=== PATIENT | female | born 2000 | race Caucasian/White ===

== ENCOUNTER 2020-04-26 13:20 | Emergency (ER) | payer OTHER, SELFPAY ==
[2020-04-26 13:29] VITALS: BP 130/67; PULSE 69; RESP 20; TEMP 36.8; O2SAT 100
--- NOTE | 2020-04-26 14:05 | ED.GENADULT ---
HPI - General Adult General Chief complaint: Upper Respiratory Infection Stated complaint: sore throat Time Seen by Provider: 04/26/20 14:05 Source: patient Mode of arrival: ambulatory Limitations: no limitations History of Present Illness HPI narrative: 20-year-old female patient presents to the [facility] with complaints of a sore throat for the past 3 days. Patient states she is concerned that she has strep due to the fact that her boss currently has strep. Patient states that the sore throat got increasingly worse last night. Patient denies any fevers, ear pain, body aches or chills. Denies any runny nose, stuffy nose. Denies any coughing, chest pain or shortness of breath. Denies any abdominal pain, nausea, vomiting or diarrhea. Patient states she has not taken anything for her symptoms since they started. Related Data Home Medications Medication Instructions Recorded Confirmed methimazole 04/26/20 Allergies Allergy/AdvReac Type Severity Reaction Status Date / Time No Known Allergies Allergy Unknown Verified 12/23/19 10:02 No Known Allergies Allergy Uncoded 12/23/19 10:02 Review of Systems Review of Systems: Narrative: CONSTITUTIONAL: Denies fever, chills, or sweats. EYES: Denies visual changes, redness, or discharge. ENT: Denies rhinorrhea, congestion, positive sore throat x3 days, denies otalgia. CARDIOVASCULAR: Denies chest pain, palpitations, or edema. RESPIRATORY: Denies cough or dyspnea. GASTROINTESTINAL: Denies abdominal pain, nausea, vomiting, or diarrhea. GENITOURINARY: Denies dysuria or hematuria. SKIN: Denies rash or itching. MUSCULOSKELETAL: Denies back pain, joint pain, or myalgia. NEUROLOGIC: Denies headache, numbness, or weakness. PSYCHIATRIC: Denies anxiety or depression. [facility] Past Medical History Medical History (Updated 04/26/20 @ 14:11 by LIZZIE Lagunas) Bipolar disorder Fractures Right arm x3, right hand, skull Genitourinary disorder Double ureter complex kidney GERD (gastroesophageal reflux disease) Urinary tract infection Comments At the time of my signature I agree with nursing past medical history, surgical, social, and family history. There is no relevant family history pertinent to the presenting complaint. Exam Narrative: Exam Narrative: GENERAL: Well-appearing, well-nourished, and in no acute distress. HEAD: Normocephalic, atraumatic. EYES: PERRLA and EOMI. ENT: Nares clear, no rhinorrhea or epistaxis. Mucous membranes moist. Posterior pharynx with some postnasal drip noted but no erythema, tonsil larger exudates or lesions are present. Bilateral TMs are clear no erythema or foreign bodies in the canal. NECK: Supple. No lymphadenopathy CHEST: Clear to auscultation. No respiratory distress. HEART: Regular rate and rhythm. No murmur heard. Normal peripheral pulses. ABDOMEN: Soft, nontender, nondistended, normal active bowel sounds. EXTREMITIES: Normal range of motion. No edema. SKIN: Warm, dry, no rash. NEURO: No focal deficits. Alert and oriented x3. Course Vital Signs Vital signs: Vital Signs Temperature 36.8 C 04/26/20 13:29 Pulse Rate 69 04/26/20 13:29 Respiratory Rate 20 04/26/20 13:29 Blood Pressure 130/67 04/26/20 13:29 Pulse Oximetry 100 04/26/20 13:29 Temperature 36.8 C 04/26/20 13:29 Pulse Rate 69 04/26/20 13:29 Respiratory Rate 20 04/26/20 13:29 Blood Pressure 130/67 04/26/20 13:29 Pulse Oximetry 100 04/26/20 13:29 Vital signs reviewed. Medical Decision Making Differential Diagnosis Differential Diagnosis: Differential diagnosis: Viral pharyngitis, pharyngitis, group A strep, infectious mononucleosis, gonococcal pharyngitis, exudative pharyngitis, oral candidiasis. Chronic allergies, postnasal drip, GERD, abscess formation, but glottitis, retropharyngeal abscess formation, or airway obstruction. Discussed with patient that her bedside strep test today is negative. Discussed with her that we will
== END 2020-04-26 14:19 | disposition home or self-care (01) ==
PROVIDERS: Emergency Provider Nurse Practitioner Family; PCP Emergency Medicine
DX: J02.8 Acute pharyngitis due to other specified organisms (principal); K21.9 Gastro-esophageal reflux disease without esophagitis
CPT/HCPCS: 87081; 87880; 99213; G0463

== ENCOUNTER → 2020-07-16 14:20 | Outpatient (CLI) | payer OTHER, SELFPAY ==
--- NOTE | ~2020-07-16 | US_ITS ---
EXAMINATION: US transvaginal DATE: 07/16/2020 14:43 INDICATION: Pelvic pain. TECHNIQUE: Multiple transvaginal sonographic images of the pelvis were obtained. COMPARISON: None. FINDINGS: The uterus measures 6.9 x 2.5 x 4.0 cm. There is trace free fluid in the pelvis. The endometrial comp radha measures 2 mm in thickness. The right ovary measures 3.4 x 1.9 x 2.1 cm. The left ovary measures 4.1 x 2.8 x 2.7 cm. There is normal vascular flow in the ovaries. IMPRESSION: 1. Normal pelvis. Reviewed, dictated and finalized at location B. E MANAGER IMPRESSION: 1. Normal pelvis.
== END ==
PROVIDERS: Visit Provider Nurse Practitioner
DX: R10.2 Pelvic and perineal pain (principal)
CPT/HCPCS: 76830

== ENCOUNTER → 2020-09-09 13:24 | Outpatient (CLI) | payer OTHER, SELFPAY ==
--- NOTE | ~2020-09-09 | US_ITS ---
EXAMINATION: US thyroid DATE: 09/09/2020 14:15 INDICATION: Goiter. Graves' disease. TECHNIQUE: Multiple ultrasound images of the thyroid were obtained. COMPARISON: None. FINDINGS: The right thyroid lobe measures 5.0 x 1.5 x 1.3 cm. The left thyroid lobe measures 4.0 x 0.9 x 1.2 c m. There is normal echotexture and echogenicity throughout the thyroid gland. No discrete nodules id entified. Normal vascular flow is present. IMPRESSION: 1. Normal thyroid. Reviewed, dictated and finalized at location A. IMPRESSION: 1. Normal thyroid.
== END ==
PROVIDERS: PCP Emergency Medicine; Visit Provider Emergency Medicine
DX: E04.9 Nontoxic goiter, unspecified (principal)
CPT/HCPCS: 76536

== ENCOUNTER 2022-07-20 12:40 | Outpatient (CLI) | payer OTHER, SELFPAY ==
--- NOTE | ~2022-07-20 | MR_ITS ---
EXAMINATION: MR lumbar spine wo con DATE: 07/20/2022 13:09 INDICATION: Back pain TECHNIQUE: Magnetic resonance imaging (MRI) of the lumbar spine was performed without intravenous con trast. Sequences included sagittal T2-weighted FSE, sagittal T2-weighted FS FSE, sagittal T1-weighted FSE, and axial T2-weighted FSE. COMPARISON: None FINDINGS: 7 degrees lumbar levocurvature. Sagittal alignment is normal. Disc height loss at T12-L1. There is an annular fissure with left paracentral disc extrusion which appears to extend partially through a sma ll left posterior Schmorl's node with disc material projecting up to 4 mm caudal to the level of the superior endplate margin on either side of the region of the Schmorl's node. There are additional sma ll Schmorl's nodes along the inferior endplate of L1 and superior endplate of T12. Mild likely physio logic anterior wedging of T12. Small focus of mild fibrofatty degenerative endplate change at the ant erior superior endplate of L5. Bone marrow signal is otherwise normal. Remaining disc heights are nor mal. The conus medullaris terminates at L2. There is normal signal in the caudal spinal cord. Paraver tebral soft tissues are unremarkable. The following disc levels are specifically discussed: T12-L1: Left paracentral disc extrusion. There is mild bilateral facet joint osteoarthritis. There is no neural foraminal stenosis. There is mild central canal stenosis. L1-L2: Risk is minimally bulging. There is mild bilateral facet joint osteoarthritis. There is minima l bilateral neural foraminal stenosis. There is no central canal stenosis. L2-L3: Disc is minimally bulging. There is moderate bilateral facet joint osteoarthritis. There is mi ld right and minimal left neural foraminal stenosis. There is no central canal stenosis. L3-L4: Disc is mildly bulging. There is mild to moderate bilateral facet joint osteoarthritis. There is minimal left and mild right neural foraminal stenosis. There is minimal central canal stenosis. L4-L5: Disc is mildly bulging. There is mild bilateral facet joint osteoarthritis. There is mild bila teral neural foraminal stenosis. There is minimal central canal stenosis. L5-S1: Disc is minimally bulging. There is moderate bilateral facet joint osteoarthritis. There is mi ld bilateral neural foraminal stenosis. There is no central canal stenosis. IMPRESSION: 1. Mild lumbar levocurvature and mild spondylosis most notable for annular fissure and disc extrusion at T12-L1. Reviewed, dictated and finalized at location L. PACKER IMPRESSION: 1. Mild lumbar levocurvature and mild spondylosis most notable for annular fiss ure and disc extrusion at T12-L1.
== END 2022-07-20 12:41 ==
PROVIDERS: PCP Emergency Medicine; Visit Provider Emergency Medicine
DX: M47.896 Other spondylosis, lumbar region (principal); M51.26 Other intervertebral disc displacement, lumbar region
CPT/HCPCS: 72148

== ENCOUNTER 2023-05-02 17:16 | Emergency (ER) | payer OTHER, SELFPAY ==
[2023-05-02 17:31] VITALS: BP 118/73; PULSE 94; RESP 16; TEMP 36.8; O2SAT 89
--- NOTE | 2023-05-02 17:33 | ED.GENADULT ---
HPI - General Adult General Chief complaint: Nausea/Vomiting/Diarrhea Stated complaint: n/v/d Time Seen by Provider: 05/02/23 17:29 History of Present Illness HPI narrative: Patient is a 23-year-old female who presents ER with nausea and vomiting. Began early this morning. She started having vomiting that progressed into diarrhea. Its been nonstop. She denies any knowledge of ingesting spoiled food. No blood in her stool or emesis. No syncope. She did have 1 episode where she was lightheaded after using the restroom. Patient did develop some burning urination today but had not had it in the days prior. 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 Related Data Home Medications Medication Instructions Recorded Confirmed methimazole 5 mg tablet 04/26/20 cetirizine 10 mg tablet (Zyrtec) 10 mg PO DAILY PRN 11/30/22 dextroamphetamine-amphetamine 20 20 mg PO DAILY 11/30/22 mg tablet (Adderall) Allergies Allergy/AdvReac Type Severity Reaction Status Date / Time No Known Allergies Allergy Unknown Verified 12/23/19 10:02 No Known Allergies Allergy Uncoded 12/23/19 10:02 Review of Systems Review of Systems: All systems reviewed & are unremarkable except as noted in HPI and below Constitutional: Constitutional: Denies chills, Reports fatigue and Denies fever(s) Cardiovascular: Cardiovascular: Reports no additional cardiovascular complaints Respiratory: Respiratory: Reports no additional respiratory complaints Gastrointestinal: Gastrointestinal: Reports abdominal pain (Cramping), Reports diarrhea, Reports nausea and Reports vomiting Genitourinary: Genitourinary: Denies nocturia, Reports dysuria and Denies flank pain Musculoskeletal: Musculoskeletal: Reports no additional musculoskeletal complaints Neurologic: Reports system reviewed and no additional complaints, except as documented [facility] Past Medical History Medical History (Updated 05/02/23 @ 19:03 by Aki Colon MD) Bipolar disorder Fractures Right arm x3, right hand, skull Genitourinary disorder Double ureter complex kidney GERD (gastroesophageal reflux disease) Urinary tract infection Family History Family History (Updated 11/30/22 @ 15:30 by Ghada Hayden MA) Father Asthma Hypertension Heart disease Mother Hypertension Social History Social History (Updated 11/30/22 @ 15:33 by Ghada Hayden MA) Social History: Usha is very confident filling out medical forms. In the last 12 months she has not received assistance from an organization or program. She does not have an advanced directive or living will. The date of her last physical exam was October. Usha is sexually active and uses an IUD as contraceptive. The date of her last menstrual cycle was 11/26/22 and typically lasts 4 days. The date of her last PAP test was 05/01/23 with normal results. She denies fearing for her safety or having a hx of abuse. She drinks 2 cups of coffee per day. She claims eating healthy and exercising regularly. She claims having a Flu vaccine and tetanus vaccine. She claims having a bone density scan. Smoking status: Unknown if ever smoked Tobacco type: e-cigarettes/vaping Additional smoking assessment comments: Has tried to quit Alcohol intake: never Substance use: never Substance use type: does not use Other substance usage details: Denies ever giving herself street drugs with a needle Lack of Transportation: No Lack of Food: Never True Current Housing: I Have Housing Concerned About Future Housing: No Difficulty Paying Gas/Electric Bills: No Difficulty Paying for Meds: No Currently Unemployed: No Education: Associate Degree Difficulty w/ Childcare or Family Care: No Living arrangements: alone Occupation/Education: occupation 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
[2023-05-02 17:39] LABS: Hemoglobin 16.2 g/dL (12.0-15.0); Mean Corpuscular HGB Conc 34.5 g/dl (32-36); Mean Corpuscular Hemoglobin 30.5 pg (26-34); Mean Corpuscular Volume 88.5 fl (80-100); Mean Platelet Volume 9.6 fl (7.4-10.4); Platelet Count Result 222 k/mm3 (150-375); Red Blood Count 5.31 M/mm3 (4.2-5.4); Red Cell Distribution Width 11.9 % (11.5-14.5)
[2023-05-02] MEDS: ONDANSETRON INJ 4 MG/2 ML VIAL IV PUSH (17:40)
[2023-05-02] MEDS: SODIUM CHLORIDE 0.9% IV 1,000 ML 999 ML IV CONT ×2 (17:40→19:17)
[2023-05-02 17:48] LABS: Alanine Aminotransferase 28 U/L (6-35); Albumin Level 5.1 g/dL (3.5-5.1); Alkaline Phosphatase 66 U/L (38-126); Anion Gap 12 mmol/L (8-16); Aspartate Amino Transferase 33 U/L (14-36); Bilirubin,Total 1.4 mg/dL (0.2-1.3); Blood Urea Nitrogen 22 mg/dL (7-17); Calcium 9.3 mg/dL (8.4-10.2); Carbon Dioxide 24 mmol/L (22-30); Chloride 102 mmol/L (98-107); Estimated Glomerular Filt Rate > 60; Glucose 120 mg/dL (65-110); Lipase 26 U/L (23-300); Potassium 4.5 mmol/L (3.4-5.0); Sodium 138 mmol/L (137-145)
[2023-05-02 18:21] VITALS: BP 141/62; PULSE 88; RESP 16; O2SAT 98
[2023-05-02 18:21] LABS: Band Neutrophils Percent 24 % (0-6); Lymphocytes Absolute Manual 0.39 K/mm3 (1.1-4.5); Monocytes Absolute Manual 0.52 K/mm3 (0.1-0.90); Monocytes Percent Manual 4 % (3-9); Neutrophils Absolute Manual 12.09 K/mm3 (1.7-7.2); Neutrophils Percent Manual 69 % (46-73); Total Cells Counted 100
[2023-05-02 18:22] LABS: Platelet Estimate Adequate (Adequate); Schistocytes None Seen (NORMAL)
[2023-05-02] MEDS: DICYCLOMINE HCL INJ 20 MG/2 ML VIAL IM (18:27)
[2023-05-02 18:49] LABS: Appearance Urine Clear (Clear); Bilirubin Urine Negative (Negative); Blood Urine Negative (Negative); Color Urine Dark Yellow (Yellow); Glucose Urine UA Negative (Negative); Ketones Urine 2+ mg/dL (Negative); Leukocyte Esterase Ur Negative LEU/UL (Negative); Nitrate Urine Negative (Negative); Protein Urine Negative (Negative); Specific Grav Ur 1.026 (1.001-1.035); Urobilinogen Urine 0.2 mg/dL (<2.0); pH Urine 5.5 (5.0-9.0)
[2023-05-02 18:57] LABS: Add Urine Microscopic? NO
[2023-05-02 19:12] VITALS: BP 127/65; PULSE 71; O2SAT 98
[2023-05-02] MEDS: PROCHLORPERAZINE EDISYLATE 10 MG/2 ML VIAL IV PUSH (20:19)
[2023-05-02 20:28] VITALS: BP 127/65; PULSE 79; RESP 16; O2SAT 100
== END 2023-05-02 20:29 | disposition home or self-care (01) ==
PROVIDERS: Emergency Provider Emergency Medicine; PCP Emergency Medicine
DX: K52.9 Noninfective gastroenteritis and colitis, unspecified (principal); K21.9 Gastro-esophageal reflux disease without esophagitis; F31.9 Bipolar disorder, unspecified; Z97.5 Presence of (intrauterine) contraceptive device; Z87.440 Personal history of urinary (tract) infections; F17.290 Nicotine dependence, other tobacco product, uncomplicated
CPT/HCPCS: 36415; 80053; 81003; 81025; 83690; 85025; 96361; 96372; 96374; 96375; 99284; J0500; J0780; J2405; J7030